=== PATIENT | male | born 1960 | race African-American/Black ===

== ENCOUNTER 2022-01-23 07:19 | Emergency (ER) | payer OTHER ==
[~2022-01-23] VITALS: Ht 177.8 cm; Wt 83.0 kg
[2022-01-23] MEDS ORDERED: CYCLOBENZAPRINE10 MG PO (07:44)
== END 2022-01-23 08:09 | disposition home or self-care (01) ==
LOC: ER 07:22
DX: M54.2 Cervicalgia (principal); M62.838 Other muscle spasm; E11.9 Type 2 diabetes mellitus without complications; E78.5 Hyperlipidemia, unspecified; F17.210 Nicotine dependence, cigarettes, uncomplicated
CPT/HCPCS: 99282